=== PATIENT | female | born 1970 | race African-American/Black ===

== ENCOUNTER 2017-08-12 20:59 | Emergency (ER) | payer OTHER ==
[~2017-08-12] VITALS: Ht 157.5 cm; Wt 104.1 kg
[2017-08-12 21:10] VITALS: BP 125/77
--- NOTE | 2017-08-12 21:15 | NUR ---
47/F CAME IN WITH MOTHER, C/O COLD, FEVER, SORE THROAT, CONGESTION X4 DAYS, HAD EPISODE OF SOB LAST NIGHT, REPORTS CONGESTION X1 MONTH. PT REPORTS PRODUCTIVE COUGH THAT STARTED BROWN TO GREEN. LUNG SOUNDS CLEAR BL. PT DENIES N/V/D. AOX4, AMBULATORY, RR EVEN AND UNLABORED. HX HTN, BIPOLAR, OVARIAN CYST. RX DEPAKOTE, LISINOPRIL, HCTZ. NKA. ER MD DR SALAZAR AWARE.
[2017-08-12 21:43] VITALS: BP 124/70
--- NOTE | 2017-08-12 21:43 | NUR ---
Patient discharged with v/s stable. Written and verbal after care instructions given and explained. Patient alert, oriented and verbalized understanding of instructions. Ambulatory with steady gait. All questions addressed prior to discharge. ID band removed. Patient advised to follow up with PMD. Rx of AUGMENTIN 875MG, PROMETHAZINE 6.25MG-15MG given. Patient educated on indication of medication including possible reaction and side effects. Opportunity to ask questions provided and answered.
== END 2017-08-12 21:43 | disposition home or self-care (01) ==
LOC: MED 20:59
DX: J20.9 Acute bronchitis, unspecified (principal); I10 Essential (primary) hypertension
CPT/HCPCS: 99283

== ENCOUNTER 2018-07-24 12:47 | Emergency (ER) | payer MEDICARE, BC ==
[~2018-07-24] VITALS: Ht 157.5 cm; Wt 98.5 kg
[2018-07-24 13:00] VITALS: BP 114/64
--- NOTE | 2018-07-24 13:00 | NUR ---
PT AMBULATED TO ER BED 09
--- NOTE | 2018-07-24 13:17 | NUR ---
ER AT BEDSIDE
[2018-07-24 13:24] VITALS: BP 111/62
== END 2018-07-24 13:26 | disposition home or self-care (01) ==
LOC: MED 12:47
DX: Z00.00 Encounter for general adult medical examination without abnormal findings (principal); I10 Essential (primary) hypertension; F31.9 Bipolar disorder, unspecified; Z98.890 Other specified postprocedural states
CPT/HCPCS: 81002; 81025; 99282